=== PATIENT | female | born 1940 | race Caucasian/White ===

== ENCOUNTER → 2016-12-03 | Outpatient (CLI) | payer OTHER | LOC: BHFA 14:45 | PROVIDERS: ATTEND Internal Medicine Cardiovascular Disease | DX: R01.1 Cardiac murmur, unspecified (principal) ==

== ENCOUNTER → 2017-09-03 | Outpatient (CLI) | payer OTHER | LOC: CIMAGING 15:39 | PROVIDERS: ATTEND Physician Assistant | DX: K59.00 Constipation, unspecified (principal) | CPT/HCPCS: 74020-PO ==

== ENCOUNTER 2017-11-08 20:43 | Observation (INO) | payer OTHER ==
[2017-11-08 21:10] LABS: PLATELET COUNT 234 10^3/uL (150-400)
[2017-11-08 21:19] LABS: INR 1.9 (0.83-1.16); PROTIME(PATIENT) 21.4 SEC (12.0-15.0)
--- NOTE | 2017-11-08 21:19 | EDPHY ---
H & P Time Seen by Provider: 11/08/17 20:57 HPI/ROS: HPI Shortness of breath. 77-year-old female by private vehicle with her daughter. This patient has had flu-like symptoms since s Bren. She states that she has had muscle aches and joint aches as well as a dry nonproductive cough, fatigue and intermittent chills and fever. The symptoms have improved. However, this morning she developed shortness of breath. She reports the shortness of breath is worse with exertion. She reports that she has also felt very fatigued throughout the day. She was seen at [facility] and referred to our facility. She uses a CPAP machine at night for sleep apnea. She denies any associated chest pain. No other complaints. ROS: Constitutional: As above. Eyes: No discharge. No changes in vision. ENT: No sore throat. As above. Respiratory: As above. Cardiac: No chest pain, no palpitations. Gastrointestinal: No abdominal pain, no vomiting, no diarrhea. Genitourinary: No hematuria. No dysuria or increased frequency with urination. Musculoskeletal: No back pain. No neck pain. No myalgias or arthralgias. Skin: No rashes. Neurological: No headache. No focal weakness or altered sensation. Past medical history: Significant for atrial fibrillation, anxiety with depression, coronary artery disease, GERD, history of MS, hypothyroid, osteoporosis, sleep apnea and uses a CPAP machine, hypertension. She has a local primary care physician. She is on Coumadin. She takes lisinopril and metoprolol for hypertension. Social history: Nonsmoker. Here with her daughter. No alcohol. Physical Exam: General Appearance: Alert, no distress. This patient is responding to questions appropriately and in full sentences. This patient appears well- hydrated and well-nourished. Eyes: Pupils equal and round no pallor or injection. No lid edema, erythema or injection. ENT, Mouth: Mucous membranes are moist. The pharyngeal tissues are unremarkable. No edema or swelling. No asymmetry suggestive of abscess. No erythema or exudates. No stridor on auscultation of her neck. No voice changes. Respiratory: There are no retractions, lungs are clear to auscultation with good air movement bilaterally. She is not tachypneic. Cardiovascular: Regular rate and rhythm. No murmur appreciated. Gastrointestinal: Abdomen is soft and nontender, no masses, bowel sounds normal. No focal tenderness at McBurney's point. No Willingham sign. Neurological: Motor sensory function is grossly intact. Cranial nerves are normal. Gait is normal. Skin: Warm and dry, no rashes. Musculoskeletal: Neck is supple and nontender. Mild left anterior upper cervical lymphadenopathy. No submental or submandibular lymphadenopathy. Extremities are symmetrical. All joints range without pain or impingement. Psychiatric: No agitation. No depression. Database: EKG: EKG time is 9:19 p.m.; EKG shows a narrow complex normal sinus rhythm with a ventricular rate of 67. The NM, QRS, QT intervals are within normal limits. There are no ST-T wave changes indicative of ischemic or injury pattern. No evidence of right heart strain. Interpreted by me. Imaging: Chest x-ray PA and lateral; the cardiac mediastinal silhouette is unremarkable. No evidence of infiltrate or pneumothorax. Possible mild bronchitis. No acute cardiopulmonary disease process noted. Interpreted by me. Unchanged from prior study January of 2016. Procedures: Emergency department course: IV was placed. She was placed on a monitor. Vital signs reviewed. EKG obtained and reviewed by myself. 9:50 p.m., patient re-evaluated. Resting comfortably at this time. I discussed the results of her diagnostic workup. She was up to the bathroom and became dyspneic. She does not feel comfortable going home at this time. Plan will be to admit her to the hospitalist service for observation overnight. 9:55 p.m., spoke with on-call hospitalist Dr. Ahmadi. Patient accepted for admission. Patient will be transferred by ambulance. Patient transferred in stable condition. Differential Diagnosis: The differential diagnosis on this patient includes but is not limited to congestive heart failure, pulmonary embolism, reactive airway disease, bronchitis, acute coronary syndrome. This represents a partial list of diagnoses considered. These considerations are based on history, physical exam , past history, reassessment and diagnostic testing. Smoking Status: Former smoker Constitutional: Initial Vital Signs Temperature (C) 36.8 C 11/08/17 21:02 Heart Rate 68 11/08/17 21:02 Respiratory Rate 20 11/08/17 21: Blood Pressure 149/80 H 11/08/17 21:02 O2 Sat (%) 95 11/08/17 21:02 O2 Delivery Mode Room Air Allergies/Adverse Reactions: ertapenem Allergy (Mild, Verified 11/08/17 21:28) amoxicillin trihydrate [From Augmentin] Allergy (Unknown, Verified 11/08/17 21: 00) potassium clavula *RETIRED-07/11/12 [From Augmentin] Allergy (Unknown, Verified 11/08/17 21:00) cyclobenzaprine Allergy (Verified 11/08/17 21:00) furosemide Allergy (Verified 11/08/17 21:00) gabapentin [From Neurontin] Allergy (Verified 11/08/17 21:00) gatifloxacin [From Zymaxid] Allergy (Verified 11/08/17 21:00) nitrofurantoin [Nitrofurantoin] Allergy (Verified 11/08/17 21:00) CIPROFLOXCIN Allergy (Unknown, Uncoded 12/09/12 04:06) CLINDAMYACIN Allergy (Unknown, Uncoded 12/09/12 04:06) Home Medications: Medication Instructions Recorded FLUoxetine [Prozac 20 MG (*)] 40 mg PO DAILY 12/09/12 Levothyroxine [Synthroid 50 mcg 50 mcg PO DAILY06 12/09/12 (*)] Multivitamins [Multivitamin (*)] 1 each PO DAILY 12/09/12 lamoTRIgine [LamICTAL 100 MG (*)] 200 mg PO HS 12/09/12 Cholecalciferol Vit D3 [Vitamin D3 2,000 units PO DAILY 07/12/13 (*)] Cyanocobalamin [Vitamin B12 (*)] 1,000 mcg PO DAILY 07/12/13 Atorvastatin Calcium [Lipitor 20 20 mg PO HS 07/22/15 mg (*)] Lansoprazole [Prevacid] 30 mg PO DAILY 07/22/15 Metoprolol Tartrate [Lopressor 25 12.5 mg PO BID #60 tab 07/24/15 mg (*)] Clopidogrel Bisulfate [Plavix (*)] 75 mg PO HS 02/15/16 Diltiazem HCl [Cartia XT 180mg] 180 mg PO HS 02/15/16 Diltiazem [Cardizem Ir Q6hr] 30 mg PO DAILY PRN 02/15/16 Herbals/Supplements -Info Only 1 ea PO DAILY 02/15/16 Lisinopril [Zestril 5 mg (*)] 5 mg PO DAILY 02/15/16 MAG CARB/AL HYDROX/ALGINIC AC 1 tbs PO TID 02/15/16 [Gaviscon Liquid] Warfarin Sodium [Coumadin 2.5MG 2.5 mg PO HS 02/15/16 (*)] Medical Decision Making - Data Points Laboratory Results: Laboratory Results 11/08/17 21:05 11/08/17 21:05 11/08/17 11/08/17 11/08/17 21:05 21:05 21:05 WBC 4.69 10^3/uL 10^3/uL (3.80-9.50) RBC 4.96 10^6/uL 10^6/uL (4.18-5.33) Hgb 14.1 g/dL g/dL (12.6-16.3) Hct 42.7 % % (38.0-47.0) MCV 86.1 fL fL (81.5-99.8) MCH 28.4 pg pg (27.9-34.1) MCHC 33.0 g/dL g/dL (32.4-36.7) RDW 14.2 % % (11.5-15.2) Plt Count 234 10^3/uL 10^3/uL (150-400) MPV 10.3 fL fL (8.7-11.7) Neut % (Auto) 58.6 % % (39.3-74.2) Lymph % (Auto) 27.5 % % (15.0-45.0) [place] % (Auto) 12.2 % % (4.5-13.0) Eos % (Auto) 1.3 % % (0.6-7.6) Baso % (Auto) 0.2 % L % (0.3-1.7) Nucleat RBC Rel Count 0.0 % % (0.0-0.2) Absolute Neuts (auto) 2.75 10^3/uL 10^3/uL (1.70-6.50) Absolute Lymphs (auto) 1.29 10^3/uL 10^3/uL (1.00-3.00) Absolute Monos (auto) 0.57 10^3/uL 10^3/uL (0.30-0.80) Absolute Eos (auto) 0.06 10^3/uL 10^3/uL (0.03-0.40) Absolute Basos (auto) 0.01 10^3/uL L 10^3/uL (0.02-0.10) Absolute Nucleated RBC 0.00 10^3/uL 10^3/uL (0-0.01) Immature Gran % 0.2 % % (0.0-1.1) Immature Gran # 0.01 10^3/uL 10^3/uL (0.00-0.10) PT 21.4 SEC H SEC (12.0-15.0) INR 1.90 H (0.83-1.16) APTT 33.5 SEC SEC (23.0-38.0) D-Dimer 0.28 ug/mLFEU ug/mLFEU (0.00-0.50) Sodium 141 mEq/L mEq/L (134-144) Potassium 3.7 mEq/L mEq/L (3.5-5.2) Chloride 105 mEq/L mEq/L (97-110) Carbon Dioxide 21 mEq/l L mEq/l (22-31) Anion Gap 15 mEq/L mEq/L (8-16) BUN 18 mg/dL mg/dL (7-23) Creatinine 0.8 mg/dL mg/dL (0.6-1.0) Estimated GFR > 60 Glucose 89 mg/dL mg/dL (70-100) Calcium 9.2 mg/dL mg/dL (8.5-10.4) Creatine Kinase 62 IU/L IU/L (0-156) CK-MB (CK-2) Fraction 0.83 ng/mL ng/mL (0.00-4.55) Troponin I < 0.012 ng/mL ng/mL (0.000-0.034) NT-Pro-B Natriuret Pep 537 pg/mL H pg/mL (0-450) Departure - Departure Disposition: [facility] Inpatient Acute Clinical Impression: Dyspnea, Fatigue Referrals: Stella Abraham MD [Primary Care Provider] - As per Instructions
--- NOTE | 2017-11-08 21:20 | CPEKG ---
Heart Rate: 67 RR Interval: 896 P-R Interval: 196 QRSD Interval: 84 QT Interval: 428 QTC Interval: 452 P Hawley: 13 QRS Hawley: 5 T Wave Hawley: 62 EKG Severity - BORDERLINE ECG - EKG Impression: SINUS RHYTHM EKG Impression: BORDERLINE R WAVE PROGRESSION, ANTERIOR LEADS Electronically Signed By: Adam Jacobson 08-Nov-2017 21:56:02
[2017-11-08 21:26] LABS: CREATINE KINASE 62 IU/L (0-156)
[2017-11-08] MEDS ORDERED: ALBUTEROL 3 ML DEYVIAL IH PRN (22:32)
[2017-11-08] MEDS ORDERED: ACETAMINOPHEN 325 MG TAB PO PRN (22:32)
[2017-11-08] MEDS ORDERED: ONDANSETRON DISINTEGRATING 4 MG TAB PO PRN (22:32)
[2017-11-08] MEDS ORDERED: ONDANSETRON 4 MG/2 ML VIAL IVP PRN (22:32)
--- NOTE | 2017-11-09 04:04 | PDGENHP ---
History and Physical - Chief Complaint Fatigue - History of Present Illness 77 yo F w/ hx of CAD, AF, hypothyroid, and HTN presents with cough and fatigue. Patient first noticed a cough around new year's nathaniel. She feels like the cough has improved but over the last 2 days she has developed severe fatigue and generalized weakness. It was these symptom's that led her to seek evaluation at the [facility]. Evaluation there was relatively unremarkable with mild HTN, stable VS otherwise, unremarkable laboratory work-up, and CXR without clear pneumonia. She was admitted for observation in the setting of ongoing fatigue. History Information - Allergies/Home Medication List Allergies/Adverse Reactions: ertapenem Allergy (Mild, Verified 11/08/17 21:28) amoxicillin trihydrate [From Augmentin] Allergy (Unknown, Verified 11/08/17 21: 00) potassium clavula *RETIRED-07/11/12 [From Augmentin] Allergy (Unknown, Verified 11/08/17 21:00) cyclobenzaprine Allergy (Verified 11/08/17 21:00) furosemide Allergy (Verified 11/08/17 21:00) gabapentin [From Neurontin] Allergy (Verified 11/08/17 21:00) gatifloxacin [From Zymaxid] Allergy (Verified 11/08/17 21:00) nitrofurantoin [Nitrofurantoin] Allergy (Verified 11/08/17 21:00) CIPROFLOXCIN Allergy (Unknown, Uncoded 12/09/12 04:06) CLINDAMYACIN Allergy (Unknown, Uncoded 12/09/12 04:06) Home Medications: FLUoxetine [Prozac 20 MG (*)] 40 mg PO DAILY 12/09/12 [Last Taken 02/14/16] Levothyroxine [Synthroid 50 mcg (*)] 50 mcg PO DAILY06 12/09/12 [Last Taken ] Multivitamins [Multivitamin (*)] 1 each PO DAILY 12/09/12 [Last Taken 02/14/16] lamoTRIgine [LamICTAL 100 MG (*)] 200 mg PO HS 12/09/12 [Last Taken 02/14/16] Cholecalciferol Vit D3 [Vitamin D3 (*)] 2,000 units PO DAILY 07/12/13 [Last Taken 02/14/16] Cyanocobalamin [Vitamin B12 (*)] 1,000 mcg PO DAILY 07/12/13 [Last Taken ] Atorvastatin Calcium [Lipitor 20 mg (*)] 20 mg PO HS 07/22/15 [Last Taken ] Lansoprazole [Prevacid] 30 mg PO DAILY 07/22/15 [Last Taken 02/14/16] Clopidogrel Bisulfate [Plavix (*)] 75 mg PO HS 02/15/16 [Last Taken 02/14/16] Diltiazem HCl [Cartia XT 180mg] 180 mg PO HS 02/15/16 [Last Taken 02/14/16] Diltiazem [Cardizem Ir Q6hr] 30 mg PO DAILY PRN 02/15/16 [Last Taken Unknown] Herbals/Supplements -Info Only 1 ea PO DAILY 02/15/16 [Last Taken Unknown] Lisinopril [Zestril 5 mg (*)] 5 mg PO DAILY 02/15/16 [Last Taken 02/14/16] MAG CARB/AL HYDROX/ALGINIC AC [Gaviscon Liquid] 1 tbs PO TID 02/15/16 [Last Taken 02/14/16] Warfarin Sodium [Coumadin 2.5MG (*)] 2.5 mg PO HS 02/15/16 [Last Taken 02/14/16] I have personally reviewed and updated: family history, medical history - Past Medical History atrial fibrillation, coronary artery disease - Surgical History Reports: cholecystectomy - Family History Positive for: cancer - Social History Smoking Status: Former smoker Review of Systems Review of Systems: ROS: 10pt was reviewed & negative except for what was stated in HPI & below Physical Exam Physical Exam: Temp Pulse Resp BP Pulse Ox 36.7 C 62 19 166/80 H 98 11/09/17 00:43 11/09/17 00:43 11/09/17 00:43 11/09/17 00:43 11/09/17 00:43 O2 (L/minute) 2 Constitutional: no apparent distress, not in pain Eyes: PERRL, EOMI Ears, Nose, Mouth, Throat: moist mucous membranes, no oral mucosal ulcers Cardiovascular: regular rate and rhythym, no murmur, rub, or gallop Respiratory: no respiratory distress, clear to auscultation Gastrointestinal: normoactive bowel sounds, soft, non-tender abdomen Skin: warm, normal color Musculoskeletal: full muscle strength, no muscle tenderness Neurologic: AAOx3, CN II-XII Intact Psychiatric: interacting appropriately, not anxious Lab Data & Imaging Review 11/08/17 21:05 11/08/17 21:05 WBC 4.69 10^3/uL (3.80-9.50) 11/08/17 21:05 RBC 4.96 10^6/uL (4.18-5.33) 11/08/17 21:05 Hgb 14.1 g/dL (12.6-16.3) 11/08/17 21:05 Hct 42.7 % (38.0-47.0) 11/08/17 21:05 MCV 86.1 fL (81.5-99.8) 11/08/17 21:05 MCH 28.4 pg (27.9-34.1) 11/08/17 21:05 MCHC 33.0 g/dL (32.4-36.7) 11/08/17 21:05 RDW 14.2 % (11.5-15.2) 11/08/17 21:05 Plt Count 234 10^3/uL (150-400) 11/08/17 21:05 MPV 10.3 fL (8.7-11.7) 11/08/17 21:05 Neut % (Auto) 58.6 % (39.3-74.2) 11/08/17 21:05 Lymph % (Auto) 27.5 % (15.0-45.0) 11/08/17 21:05 [place] % (Auto) 12.2 % (4.5-13.0) 11/08/17 21:05 Eos % (Auto) 1.3 % (0.6-7.6) 11/08/17 21:05 Baso % (Auto) 0.2 % (0.3-1.7) L 11/08/17 21:05 Nucleat RBC Rel Count 0.0 % (0.0-0.2) 11/08/17 21:05 Absolute Neuts (auto) 2.75 10^3/uL (1.70-6.50) 11/08/17 21:05 Absolute Lymphs (auto) 1.29 10^3/uL (1.00-3.00) 11/08/17 21:05 Absolute Monos (auto) 0.57 10^3/uL (0.30-0.80) 11/08/17 21:05 Absolute Eos (auto) 0.06 10^3/uL (0.03-0.40) 11/08/17 21:05 Absolute Basos (auto) 0.01 10^3/uL (0.02-0.10) L 11/08/17 21:05 Absolute Nucleated RBC 0.00 10^3/uL (0-0.01) 11/08/17 21:05 Immature Gran % 0.2 % (0.0-1.1) 11/08/17 21:05 Immature Gran # 0.01 10^3/uL (0.00-0.10) 11/08/17 21:05 PT 21.4 SEC (12.0-15.0) H 11/08/17 21:05 INR 1.90 (0.83-1.16) H 11/08/17 21:05 APTT 33.5 SEC (23.0-38.0) 11/08/17 21:05 D-Dimer 0.28 ug/mLFEU (0.00-0.50) 11/08/17 21:05 Sodium 141 mEq/L (134-144) 11/08/17 21:05 Potassium 3.7 mEq/L (3.5-5.2) 11/08/17 21:05 Chloride 105 mEq/L (97-110) 11/08/17 21:05 Carbon Dioxide 21 mEq/l (22-31) L 11/08/17 21:05 Anion Gap 15 mEq/L (8-16) 11/08/17 21:05 BUN 18 mg/dL (7-23) 11/08/17 21:05 Creatinine 0.8 mg/dL (0.6-1.0) 11/08/17 21:05 Estimated GFR > 60 11/08/17 21:05 Glucose 89 mg/dL (70-100) 11/08/17 21:05 Calcium 9.2 mg/dL (8.5-10.4) 11/08/17 21:05 Creatine Kinase 62 IU/L (0-156) 11/08/17 21:05 CK-MB (CK-2) Fraction 0.83 ng/mL (0.00-4.55) 11/08/17 21:05 Troponin I < 0.012 ng/mL (0.000-0.034) 11/08/17 21:05 NT-Pro-B Natriuret Pep 537 pg/mL (0-450) H 11/08/17 21:05 Imaging Review: Imaging Impressions Chest X-Ray 11/08/17 20:57 Impression: Coronary artery stents and cholecystectomy. No convincing evidence of pneumonia. Visualized and Interpreted EKG results: Yes EKG Interpretation: Positive for: normal sinsus rhythm Assessment & Plan Assessment: 77 yo F w/ hx of CAD and AF presents with cough, fatigue, and SOB. Plan: 1. Cough, fatigue, SOB - Constellation of symptoms suspicious for viral etiology. Laboratory work-up largely unremarkable; CXR without clear pneumonia. - Respiratory PCR - Supportive care - PT/OT evaluations 2. Hx CAD - MAUDE to LAD in 2014. Recent cardiac cath revealed widely patent stent. Denies chest pain currently. On statin, Plavix, and BB as outpatient. 3. Hx AF - In NSR on admission. Takes diltiazem, metoprolol, and warfarin was an outpatient. INR 1.9 on admission. - Continue home meds - Monitor daily INR 4. HTN - On diltiazem, metoprolol, and lisinopril as an outpatient. Mildly hypertensive while here thus far. Diet - Regular Code - Full Ppx - Warfarin Dispo - Admit to observation status
[2017-11-09 05:11] VITALS: RESP 16; TEMP 98.6
[2017-11-09 05:53] LABS: INR 1.91 (0.83-1.16)
[2017-11-09] MEDS ORDERED: ENOXAPARIN 40 MG/0.4 ML SYR SC SCH (09:00)
[2017-11-09] MEDS ORDERED: ATORVASTATIN CALCIUM 20 MG TAB PO SCH (11:45)
[2017-11-09] MEDS ORDERED: METOPROLOL TARTRATE 25 MG TAB PO SCH (11:45)
[2017-11-09] MEDS ORDERED: CHOLECALCIFEROL VIT D3 1,000 UNITS TAB PO SCH (11:45)
[2017-11-09] MEDS ORDERED: FLUoxetine 20 MG CAP PO SCH (11:45)
[2017-11-09] MEDS ORDERED: LISINOPRIL 10 MG TAB PO SCH (11:45)
[2017-11-09] MEDS ORDERED: LEVOTHYROXINE 50 MCG TAB PO SCH (11:45)
[2017-11-09] MEDS ORDERED: CYANO/VITAMIN B12 1000 MCG TAB PO SCH (12:00)
--- NOTE | 2017-11-09 15:02 | HOSPPROG ---
Hospitalist Progress Note Assessment/Plan: 77 yo F w/ hx of CAD and AF presents with cough, fatigue, and SOB. *Influenza B symptoms occurred a week ago and now is better won't treat at this time *cough, fatigue, sob supportive care cxr doesn't indicate pna *CAD hx plavix, BB,statin *Hx of AF in sinus on warfarin INR subtherapeutic *HTN *Plan: dc home/ further f/u with her PCP Subjective: Taina Nicholas is feeling much better today, less weak. Objective: Vital Signs Temp Pulse Resp BP Pulse Ox 37.0 C 72 16 142/80 H 96 11/09/17 11:58 11/09/17 12:18 11/09/17 11:58 11/09/17 12:19 11/09/17 11:58 Microbiology 11/09/17 01:23 Respiratory Panel (PCR) - Final Nasal, Sinus - Swab 11/08/17 11/09/17 11/10/17 05:59 05:59 05:59 Intake Total 200 Balance 200 PT 22.0 SEC (12.0-15.0) H 11/09/17 05:24 INR 1.91 (0.83-1.16) H 11/09/17 05:24 - Physical Exam Constitutional: no apparent distress, appears nourished, not in pain Eyes: PERRL Ears, Nose, Mouth, Throat: hearing normal Cardiovascular: regular rate and rhythym Respiratory: no respiratory distress, clear to auscultation Gastrointestinal: normoactive bowel sounds Skin: warm, normal color Musculoskeletal: full muscle strength Neurologic: AAOx3 Psychiatric: interacting appropriately ICD10 Worksheet Patient Problems: Problems Problem Status Onset Dyspnea Acute Fatigue Acute Chest pain Acute Stented coronary artery Acute
[2017-11-09 16:11] VITALS: BP 164/81; PULSE 64; O2SAT 93
--- NOTE | 2017-11-09 17:13 | ASDISCHSUM ---
Discharge Information Plan Status:Home with No Needs Medically Cleared to Leave: Discharge Date:11/09/2017 05:08 PM CM D/C Disposition:Home, Routine, Self-Care ADT D/C Disposition:Home, Routine, Self-Care Projected Discharge Date:11/09/2017 05:08 PM Transportation at D/C: Discharge Delay Reason: Follow-Up Date:11/09/2017 05:08 PM Discharge Slot: Final Diagnosis: Placement Information Patient Contact Information Contact Name:AUSTYN Relationship:Lovely Address: Work Phone: City:[place] Alternate Phone: State/[place] Code:[place] Email: Financial Information Financial Class: Primary Plan Desc:MEDICARE OUTPATIENT Primary Plan Number:[id number] Secondary Plan Desc:[employer] Secondary Plan Number:[id number] Assessment Information Intervention Information Intervention Type:*YBARRA-Signed Date of Service:11/09/2017 10:28 AM Patient Type:Observation Staff Member:Holly Patel Hours: Discipline: Severity: Comment:
--- NOTE | 2017-11-09 18:17 | GDS ---
[f rep st] DISCHARGE SUMMARY DISCHARGE DIAGNOSES: 1. Influenza B. 2. Cough, fatigue, shortness of breath. 3. Coronary artery disease history. 4. History of atrial fibrillation. 5. Hypertension. HISTORY OF PRESENT ILLNESS: Briefly, the patient is a 77-year-old female with a history of coronary artery disease and atrial fibrillation. She presented to the emergency room with cough, fatigue and shortness of breath. In talking with her this afternoon, she said that she has had these symptoms si nce New Year. She is feeling markedly better. She was checked for the flu, she is positive for infl uenza B. At this time, we will give her supportive care since she is already improved. She will fur ther follow up with her primary care provider. HOSPITAL COURSE: 1. Influenza B. Supportive care. At this time, much improved. She is on room air and oxygenating well. 2. Cough, fatigue, shortness of breath. This is due to the above. A chest x-ray was performed that did not indicate pneumonia. 3. Coronary artery disease history. Resumed her Plavix, beta loreto, and statin. 4. History of atrial fibrillation. She is currently in sinus. Her INR is subtherapeutic, recommend ed to get it checked in a week. 5. Hypertension. Blood pressure is 142/80. DISCHARGE CONDITION: Stable. Her blood pressure is elevated at 164/81, heart rate is 64, respirator y rate is 16, O2 sats on room air 93%, temperature 37 degrees Celsius. MEDICATIONS AT DISCHARGE: Please see the EMR. DISCHARGE INSTRUCTIONS: 1. To follow up with her primary care provider. 2. If she develops fever, chills, chest pain, or shortness of breath, return to the ER. /[id number]/MODL
[2017-11-09] MEDS ORDERED: DILTIAZEM CD 180 MG CAP PO SCH (21:00)
[2017-11-09] MEDS ORDERED: WARFARIN SODIUM 2.5 MG TAB PO SCH (21:00)
[2017-11-09] MEDS ORDERED: NON-FORMULARY NEW DRUG (Diltiazem Hcl [Cartia Xt 180mg] 180 MG) PO SCH (21:00)
[2017-11-09] MEDS ORDERED: lamoTRIgine 100 MG TAB PO SCH (21:00)
[2017-11-10] MEDS ORDERED: LANSOPRAZOLE SUSP 3 MG/ML UDSYR (Peds) PO SCH (09:00)
[2017-11-10] MEDS ORDERED: MULTIVITAMINS 1 EACH TAB PO SCH (09:00)
[2017-11-10] MEDS ORDERED: PANTOPRAZOLE SODIUM 40 MG TAB PO SCH (09:00)
[2017-11-11] MEDS ORDERED: WARFARIN SODIUM 5 MG TAB PO SCH (21:00)
== END 2017-11-09 17:08 | disposition home or self-care (01) ==
LOC: CED 20:43 → CEDHOLD 21:45 → F3N 11-09 00:37
PROVIDERS: ADMIT Internal Medicine; ATTEND Internal Medicine
DX: J10.1 Influenza due to other identified influenza virus with other respiratory manifestations (principal); R53.83 Other fatigue; I25.10 Atherosclerotic heart disease of native coronary artery without angina pectoris; I48.91 Unspecified atrial fibrillation; I10 Essential (primary) hypertension; Z79.01 Long term (current) use of anticoagulants; G47.33 Obstructive sleep apnea (adult) (pediatric); K21.9 Gastro-esophageal reflux disease without esophagitis; I25.2 Old myocardial infarction; E03.9 Hypothyroidism, unspecified; M81.0 Age-related osteoporosis without current pathological fracture; F32.9 Major depressive disorder, single episode, unspecified; F41.9 Anxiety disorder, unspecified; Z88.0 Allergy status to penicillin; Z95.5 Presence of coronary angioplasty implant and graft
CPT/HCPCS: 71046; 93005; G0378; J1650; 80048-PO; 82550-PO; 82553-PO; 83880-PO; 84484-PO; 85025-PO; 85378-PO; 85610-PO; 85730-PO

== ENCOUNTER → 2018-03-30 | Outpatient (CLI) | payer OTHER | LOC: BHFA 15:15 | PROVIDERS: ATTEND Physician Assistant Medical | DX: I25.10 Atherosclerotic heart disease of native coronary artery without angina pectoris (principal); I10 Essential (primary) hypertension ==

== ENCOUNTER 2018-11-09 12:54 | Day surgery (SDC) | payer OTHER ==
[2018-11-09] MEDS ORDERED: fentaNYL 100 MCG/2 ML INJ IVP ONE (13:00)
[2018-11-09] MEDS ORDERED: NS 500 ML IV ONE (13:00)
[2018-11-09] MEDS ORDERED: MIDAZOLAM 2 MG/2 ML VIAL IVP ONE (13:00)
[2018-11-09] MEDS ORDERED: BENZOCAINE UNIT DOSE SPRAY HURRICAINE MM ONE (13:00)
[2018-11-09] MEDS ORDERED: ATROPINE SULFATE 1 MG/10 ML SYR IVP ONE (13:00)
[2018-11-09 13:51] LABS: INR 1.63 (0.83-1.16); PROTIME(PATIENT) 19.5 SEC (12.0-15.0)
--- NOTE | 2018-11-09 14:00 | PDHPUP ---
History & Physical Update H&P update statement: This history and physical update is based on an assessment of the patient which was completed after admission or registration (within 24 hours), but prior to the surgery/procedure. H&P update: H&P reviewed & patient examined, no change in patient's condition since H&P completed
[2018-11-09] MEDS ORDERED: PROPOFOL 200 MG/20 ML VIAL ONE ×2 (14:11→14:38)
[2018-11-09] MEDS ORDERED: LIDOCAINE 1% 5 ML SDV ONE (14:12)
[2018-11-09] MEDS ORDERED: SUCCINYLCHOLINE CHLORIDE 200 MG/10 ML SYR IVP ONE (14:12)
--- NOTE | 2018-11-09 15:01 | PDTEE1 ---
NATALIYA Cardioversion Procedure Procedure: electrical cardioversion, transesophageal echo Indications: atrial fibrillation Consent: signed and in chart Anticoagulation: warfarin Procedural Details: Sedation was provided by the anesthesia service. Pads were placed in anterior- posterior position. NATALIYA probe was advanced and standard images obtained. There is no evidence of left atrial or left atrial appendage thrombus. Synchronized cardioversion attempt #1: 200J Results: normal sinus rhythm Conclusions: successful NATALIYA cardioversion (Continue warfarin. The patient will take an additional 2.5 mg this evening as her INR today was 1.6. Follow-up INR on November 11 or November 14. She will also need follow-up for her moderate mitral regurgitation.) Patient Problems: Problems Problem Status Onset Chest pain Acute Dyspnea Acute Fatigue Acute Stented coronary artery Acute
--- NOTE | 2018-11-10 14:35 | CPEKG ---
Test Reason : OPEN Blood Pressure : / mmHG Vent. Rate : 090 BPM Atrial Rate : 196 BPM P-R Int : 137 ms QRS Dur : 088 ms QT Int : 388 ms P-R-T Axes : 106 -64 062 degrees QTc Int : 475 ms Atrial fibrillation Left anterior fascicular block Probable anteroseptal infarct, old Confirmed by Paulino Melvin ([id number]) on 11/10/2018 2:35:06 PM Referred By: Confirmed By:Paulino Melvin
--- NOTE | 2018-11-10 14:37 | CPEKG ---
Test Reason : OPEN Blood Pressure : / mmHG Vent. Rate : 074 BPM Atrial Rate : 070 BPM P-R Int : 225 ms QRS Dur : 090 ms QT Int : 417 ms P-R-T Axes : 024 -57 051 degrees QTc Int : 463 ms Sinus rhythm First degree AV block Left anterior fascicular block Probable anteroseptal infarct, old Non-specific ST depression lateral leads Confirmed by Paulino Melvin ([id number]) on 11/10/2018 2:36:33 PM Referred By: Confirmed By:Paulino Melvin
--- NOTE | 2018-11-10 15:44 | ECHO ---
[email or web address] [address] [address] Main: [phone] Fax: Transesophageal Echocardiography Name: ZEINAB WAGNER MR#: [id number] Study Date: 11/09/2018 Study Time: 01:58 PM Date of : 1940 Age: 78 year(s) Height: ( ) Weight: ( ) BSA: Gender: Female Examination: NATALIYA Indication: Atrial Fibrillation Image Quality: Contrast: Requested by: Sol Cotton Heart Rate: Rhythm: BP: 153 mmHg/98 mmHg Procedure Staff Manager Philosophy: Dulce Mayorga [facility] Reading Physician: Sol Cotton MD Requesting Provider: NATALIYA Exam Details Conclusions: Normal global systolic LV function. The left atrium is moderately to severely dilated. An agitated saline study was performed and was negative for intracardiac shunting. No thrombus in left appendage. The right atrium is moderately to severely dilated. Moderate mitral valve regurgitation is present. Mild tricuspid regurgitation is present. Mild plaque visualized in the descending aorta.. Measurements: Chambers Valvular Assessment AV/MV Valvular Assessment TV/PV Normal Normal Normal Name Value Range Name Value Range Name Value Range Additional Measurements: Findings: Left Ventricle: Normal global systolic LV function. Left Atrium: The left atrium is moderately to severely dilated. An agitated saline study was performed and was negative for intracardiac shunting. Left Atrial Appendage: Patient: ZEINAB WAGNER Study Date: 11/09/2018 Page 1 of 2 01:58 PM No thrombus in left appendage. Right Atrium: The right atrium is moderately to severely dilated. Mitral Valve: Moderate mitral valve leaflet calcification is present. Moderate mitral valve regurgitation is present. Aortic Valve: The aortic valve is tri-leaflet. There is no aortic valve regurgitation. Tricuspid Valve: Mild tricuspid regurgitation is present. Aorta: Mild plaque visualized in the descending aorta.. l1n (No Signature Object) Patient: ZEINAB WAGNER Study Date: 11/09/2018 Page 2 of 2 01:58 PM [id number]
== END 2018-11-09 16:40 | disposition home or self-care (01) ==
LOC: FCATH 12:54
PROVIDERS: ATTEND Internal Medicine Cardiovascular Disease
DX: I48.91 Unspecified atrial fibrillation (principal); Z79.01 Long term (current) use of anticoagulants; I25.10 Atherosclerotic heart disease of native coronary artery without angina pectoris; I10 Essential (primary) hypertension; G47.33 Obstructive sleep apnea (adult) (pediatric)
CPT/HCPCS: J0330; J2704

== ENCOUNTER → 2018-11-23 | Outpatient (CLI) | payer OTHER ==
--- NOTE | 2018-11-09 14:17 | PDANEPAE ---
ANE Past Medical History - Cardiovascular History Hx Arrhythmias: Yes - Pulmonary History Hx Oxygen in Use at Home: No Hx Sleep Apnea: Yes - Endocrine History Hx Diabetes: No Obesity: no - Chronic Pain History Chronic Pain: No ANE Review of Systems Review of Systems: ANE Patient History - Allergies Allergies/Adverse Reactions: ertapenem Allergy (Mild, Verified 11/08/17 21:28) amoxicillin trihydrate [From Augmentin] Allergy (Unknown, Verified 11/08/17 21: 00) potassium clavula *RETIRED-07/11/12 [From Augmentin] Allergy (Unknown, Verified 11/08/17 21:00) amoxicillin Allergy (Verified 11/09/17 09:07) cyclobenzaprine Allergy (Verified 11/08/17 21:00) furosemide Allergy (Verified 11/08/17 21:00) gabapentin [From Neurontin] Allergy (Verified 11/08/17 21:00) gatifloxacin [From Zymaxid] Allergy (Verified 11/08/17 21:00) nitrofurantoin [Nitrofurantoin] Allergy (Verified 11/08/17 21:00) CIPROFLOXCIN Allergy (Unknown, Uncoded 12/09/12 04:06) CLINDAMYACIN Allergy (Unknown, Uncoded 12/09/12 04:06) - Home Medications Home Medications: FLUoxetine [Prozac 20 MG (*)] 20 mg PO DAILY 12/09/12 [Last Taken 11/07/17] Levothyroxine [Synthroid 50 mcg (*)] 50 mcg PO DAILY06 12/09/12 [Last Taken 05/18] Multivitamins [Multivitamin (*)] 1 each PO DAILY 12/09/12 [Last Taken 11/07/17] lamoTRIgine [LamICTAL 100 MG (*)] 200 mg PO HS 12/09/12 [Last Taken 11/07/17] Cholecalciferol Vit D3 [Vitamin D3 (*)] 2,000 units PO DAILY 07/12/13 [Last Taken 11/07/17] Cyanocobalamin [Vitamin B12 (*)] 1,000 mcg PO DAILY 07/12/13 [Last Taken ] Atorvastatin Calcium [Lipitor 20 mg (*)] 20 mg PO DAILY 07/22/15 [Last Taken 05/18] Lansoprazole [Prevacid] 30 mg PO DAILY 07/22/15 [Last Taken 11/07/17] Diltiazem HCl [Cartia XT 180mg] 180 mg PO HS 02/15/16 [Last Taken 11/07/17] Herbals/Supplements -Info Only 1 ea PO DAILY 02/15/16 [Last Taken Unknown] MAG CARB/AL HYDROX/ALGINIC AC [Gaviscon Liquid] 1 tbs PO TID PRN 02/15/16 [Last Taken 02/14/16] Warfarin Sodium [Coumadin 2.5MG (*)] 2.5 mg PO SUMOTUWEFRSA@02/15/16 [Last Taken 11/08/17] Acetaminophen [Tylenol 325mg (*)] 325 mg PO DAILY PRN 11/09/17 [Last Taken Unknown] Lisinopril [Zestril 10 mg (*)] 10 mg PO DAILY 11/09/17 [Last Taken 11/07/17] Warfarin Sodium [Coumadin 5MG (*)] 5 mg PO TH@11/09/17 [Last Taken 11/04/17] - Smoking Hx Smoking Status: Former smoker ANE Physical Exam - Airway Neck exam: FROM Mallampati Score: Class 1 Mouth exam: normal dental/mouth exam - Pulmonary Pulmonary: no respiratory distress - Cardiovascular Cardiovascular: irregularly irregular - ASA Status ASA Status: III ANE Anesthesia Plan Anesthesia Plan: GA with mask
--- NOTE | 2018-11-09 14:58 | POSTANESTH ---
Post Anesthetic Evaluation Cardiovascular Status: Normal, Stable Respiratory Status: Normal, Stable Level of Consciousness/Mental Status: Mildly Sleepy, Arousable Pain Control: Adequate, Prn Tx Ordered Nausea/Vomiting Control: Adequate, Prn Tx Ordered Complications Possibly Related to Anesthesia: None Noted
== END ==
LOC: FIMAGING 12:48
PROVIDERS: ATTEND Internal Medicine Endocrinology, Diabetes & Metabolism
DX: Z13.820 Encounter for screening for osteoporosis (principal); M85.89 Other specified disorders of bone density and structure, multiple sites; E07.9 Disorder of thyroid, unspecified; Z78.0 Asymptomatic menopausal state

== ENCOUNTER → 2018-12-02 | Outpatient (CLI) | payer OTHER | LOC: BHFA 14:00 | PROVIDERS: ATTEND Internal Medicine Cardiovascular Disease | DX: R07.9 Chest pain, unspecified (principal); I48.91 Unspecified atrial fibrillation; I25.10 Atherosclerotic heart disease of native coronary artery without angina pectoris; I38 Endocarditis, valve unspecified | CPT/HCPCS: 78452; 93017; A9500; J2785 ==

== ENCOUNTER → 2019-04-17 | Outpatient (CLI) | payer OTHER | LOC: GIMAGING 17:11 ==